=== PATIENT | female | born 1990 | race Caucasian/White ===

== ENCOUNTER 2024-05-13 15:30 | Emergency (ER) | payer OTHER, SELFPAY ==
[2024-05-13 15:35] VITALS: BP 110/79
--- NOTE | 2024-05-13 16:53 | ED.GENMED ---
History of Present Illness
General
Chief Complaint: DVT/Possible Blood Clot
Source: patient
Exam Limitations: none
Time Seen by Provider: 05/13/24 16:04
Nursing documentation reviewed up to this point in time: agreed with
History of Present Illness
History of Present Illness:
Patient to ED with complaint of left calf pain x 4 days. She is concerned for DVT. No history of prior DVT. No history of trauma. No prior history of same. Brought self to ED for eval.
Past History
Past History
ED Past Medical History: None
Phy Exam
General Physical Exam
General Presentation: well appearing and no apparent distress
General age: appears stated age
General Skin: warm and dry
General Habitus: normal
General Mental: alert
Musculoskeletal Exam
Musculoskeletal Exam: full ROM and neuro vasc intact
Skin Exam
Skin Exam: normal color, warm/dry and no rash
Psychiatric Exam
Psychiatric Exam: normal mood/affect
Course
Orders/Labs/Results
Orders:
Orders
05/13/24 15:39
US Periph Venous LOWER Ext LT Urgent
Comment:
Reason For Exam: left calf pain for last four days
Vital Signs
Initial and Last Documented VS:
Initial Vital Signs
Temp Pulse Resp BP Pulse Ox
98.0 F 60 20 110/79 98
05/13/24 15:35 05/13/24 15:35 05/13/24 15:35 05/13/24 15:35 05/13/24 15:35
Last Documented Vital Signs
Temp Pulse Resp BP Pulse Ox
98.0 F 60 20 110/79 97
05/13/24 15:35 05/13/24 15:35 05/13/24 15:35 05/13/24 15:35 05/13/24 16:37
*Radiology
Radiology exam reviewed: radiology read reviewed
*Pulse Oximetry
Patient hypoxic: no
*Critical Care Note
Total Time (30-74mins, 75-104mins- exclusive of procedures): Not Applicable
ED Attending Note
-
Portions of this chart may have been created with voice recognition software.� Occasional wrong word or��sound alike� substitutions may have occurred due to the inherent limitations of voice recognition software.
Discharge Plan
Departure
Patient Disposition: Home (Routine Discharge)
Date of Disposition: 05/13/24
Time of Disposition: 16:51
Patient with high blood pressure during this ER visit?: No
Condition: Good
Covid-19: Not Applicable
Discharge Problem:
Calf pain
Instructions: Ibuprofen, Musculoskeletal Pain
Activity Restrictions/Additional Instructions:
Follow up with your family doctor.
Interventions
Interventions:
*ED COVID-19 Vaccine History Last Done: 05/13/24 15:35
ED- Cardiac Assessment Last Done: 05/13/24 16:37
ED- Pulmonary Assessment Last Done: 05/13/24 16:37
ED-Skin Assessment Last Done: 05/13/24 16:08
Discharge Date and Time
Print Language: URUGUAYAN
Musculoskeletal Injury Exam
Musculoskeletal Injury Exam
Left Calf:
Pain with Movement?: Moderate
Tender to palpation?: Mild
Soft tissue swelling?: None
External deformity and angulation?: None
Joint effusion?: None
Contusion?: None
Hematoma-local bleeding into tissue?: None
Crepitus with movement?: No
Malalignment/deformity?: No
Range of motion: Full
Distal skin color and temperature: normal-warm & good color
Capillary Refill: normal
Normal distal neurovascular exam?: Yes
Peripheral Pulses: posterior tibial (left): 3+, posterior tibial (right): 3+, dorsalis pedis (left): 3+ and dorsalis pedis (right): 3+
[2024-05-13 17:01] VITALS: BP 121/73
== END 2024-05-13 17:02 | disposition home or self-care (01) ==
LOC: EMR 15:30
PROVIDERS: EMERGENCY PHYSICIAN Emergency Medicine
DX: M79.662 Pain in left lower leg (principal)
CPT/HCPCS: 99284; 93971

== ENCOUNTER 2025-05-08 19:42 | Emergency (ER) | payer OTHER, SELFPAY ==
[2025-05-08 19:51] VITALS: BP 122/72
[2025-05-08 20:38] LABS: Hematocrit 40.0 % (37.0-47.0); Hemoglobin 13.3 g/dL (12.0-16.0); Mean Corp Hgb Conc. 33.3 g/dL (33.0-37.0); Mean Corpuscular Volume 95.9 fL (81.0-99.0); Nucleated Red Blood Cells % 0 %; Platelet Count 223 10^3/uL (130-400); Red Cell Dist. Width 11.9 % (11.5-14.5)
[2025-05-08 20:46] LABS: HCG, Serum Qualitative Screen Negative
[2025-05-08 20:47] LABS: Urine Character Clear (Clear)
[2025-05-08 20:50] LABS: ALT (SGPT) 12 U/L (0-35); AST (SGOT) 21 U/L (14-36); Albumin 4.3 g/dl (3.5-5.0); Alkaline Phosphatase 62 U/L (38-126); Blood Urea Nitrogen 15 mg/dl (7-17); Calcium 9.5 mg/dl (8.4-10.2); Carbon Dioxide 27 mmol/L (22-30); Chloride 106 mmol/L (98-107); Glucose 91 mg/dl (70-99); Lipase 105 U/L (23-300); Potassium 4.1 mmol/L (3.5-5.1); Sodium 138 mmol/L (135-145); Total Protein 7.0 g/dl (6.3-8.2); eGFR > 60.00
--- NOTE | 2025-05-08 21:12 | ED.GENMED ---
History of Present Illness
General
Chief Complaint: Abdominal Pain
Source: patient
Exam Limitations: none
Time Seen by Provider: 05/08/25 20:56
Nursing documentation reviewed up to this point in time: agreed with
History of Present Illness
History of Present Illness:
34-year-old female with right lower abdominal pain and pelvic pain for a year, she thinks she had some prior imaging though she is not sure used to live in [place] now lives in [facility] no fever chills no nausea no vomiting she feels her symptoms
could have burst states her brother had a similar episode with his appendix, no change with her menstrual period, she has a 2-year-old, been busy with 2-year-old unable to see the doctor,
Past History
Past History
ED Past Medical History: None
ED Past Surgical History: None
Social History
Tobacco: Non-smoker
Alcohol: None
Drug: None
Personal:
Living: with family
Employment: Employed
Review of Systems
Review of Systems
All Other Systems: Not applicable
Constitutional: Denies fever or fatigue
EENT: Reports no symptoms
Respiratory: Reports no symptoms
Cardiac: Reports no symptoms
ABD/GI: Reports abdominal pain; Denies nausea or diarrhea
: Reports no symptoms; Denies incontinence or bleeding
Neurological: Reports no symptoms
Endocrine: Reports no symptoms
Phy Exam
Physical Exam
Physical Exam:
Physical Exam
General: no apparent distress, not acutely ill
Neck: No jaw
Heart: s1/s2 regular rate and rhythm, no murmur. equal radial pulses.
Lungs: no acute respiratory distress. clear bilaterally
Abdomen: Tender in the right lower abdomen mild without guarding or rebound
Neuro: alert and oriented. no focal neurological deficits
Skin: no rash
Psychiatric: well kept. interactive and cooperative
Extremities: no edema.
Course
Orders/Labs/Results
Orders:
Orders
05/08/25 19:54
Test Result ONCE
05/08/25 20:05
Complete Blood Count/With Diff Urgent
Comprehensive Metabolic Panel Urgent
HCG, Serum Qualitative Screen Urgent
Lipase Urgent
Urinalysis Reflex To Culture Urgent
Date Specimen was Collected: 05/08/25
Time Specimen was Collected: 19:53
Urine Microscopic Reflex Cult Urgent
Urine Culture Urgent
[facility] Source: U
Specimen Description:
Date Specimen was Collected: 05/08/25
Time Specimen was Collected: 19:53
05/08/25 21:10
CT Abd/Pel (IV only)-DH only Urgent
Comment:
Reason For Exam: rlq pain
Ketorolac [Toradol] 30 mg IV NOW STA
US Pelvis Only (non-obstetric) Urgent
Comment:
Reason For Exam: r adbexa oabu
05/08/25 23:14
Magnesium Citrate [Citroma] 300 ml PO ONCE ONE
Abnormal Lab Results
05/08/25
20:05
RBC 4.17 L 10^6/uL
(4.20-5.40)
MCH 31.9 H pg
(27.0-31.0)
MPV 11.3 H fL
(7.4-10.4)
Leukocyte Esterase Rfl 2+ A
(Negative)
Urine WBC (Reflex) 16-20 A /HPF
(0-5)
Urine Bacteria (Reflex) Few A
(Negative)
05/08/25 20:05
05/08/25 20:05
Vital Signs
Initial and Last Documented VS:
Initial Vital Signs
Temp Pulse Resp BP Pulse Ox
98.2 F 50 16 122/72 98
05/08/25 19:51 05/08/25 19:51 05/08/25 19:51 05/08/25 19:51 05/08/25 19:51
Last Documented Vital Signs
Temp Pulse Resp BP Pulse Ox
98.2 F 48 17 111/66 100
05/08/25 19:51 05/08/25 23:16 05/08/25 23:16 05/08/25 23:01 05/08/25 23:02
MDM/Problems Addressed
Differential Diagnosis Includes:
Ovarian cyst inflammatory bowel disease TOA doubt appendicitis other
MDM/Problems Addressed:
Right lower abdominal
*Radiology
Radiology exam reviewed: radiology read reviewed
*Pulse Oximetry
SaO2: 98
Oxygen Mode of Delivery: Room air
Patient hypoxic: no
*Critical Care Note
Total Time (30-74mins, 75-104mins- exclusive of procedures): Not Applicable
Update Note
Update Note:
[address] noted ultrasound pending labs noted
Patient appears comfortable, ultrasound CAT scan reports reviewed patient states he is not constipated, reviewed possibility of muscle strain abdominal wall laxity after , even sports hernia she is most concerned that she has a family
history of colon cancer father of colon cancer will refer her to see GI nonurgently, started on a bowel regimen and NSAIDs
ED Attending Note
-
Portions of this chart may have been created with voice recognition software.� Occasional wrong word or��sound alike� substitutions may have occurred due to the inherent limitations of voice recognition software.
Discharge Plan
Departure
Patient Disposition: Home (Routine Discharge)
Date of Disposition: 05/08/25
Time of Disposition: 23:17
Patient with high blood pressure during this ER visit?: No
Condition: Good
Discharge Problem:
Abdominal pain
Instructions: Constipation, Adult (DC), Abdominal Pain
Prescriptions:
New
ibuprofen 600 mg tablet
600 mg PO Q8H PRN (Reason: Pain) Qty: 20 0RF
polyethylene glycol 3350 [Miralax] 17 gram/dose powder
4 g PO DAILY PRN (Reason: Constipation) Qty: 238 0RF
Referrals:
NONE,* [Family Provider, Internal Medicine]
Sangita Busby, [Active, Gastroenterology] - Next open appointment
Interventions
Interventions:
*Risk Screen - Suicide Last Done: 05/08/25 19:51
*General Assessment Last Done: 05/08/25 19:51
*Neglect/Abuse Screening Last Done: 05/08/25 19:51
*ED- Fall Risk Assessment Last Done: 05/08/25 21:38
*ED COVID-19 Vaccine History Last Done: 05/08/25 21:38
ND-Fgkwhg-Iflsmhxkrt Assessment Last Done: 05/08/25 21:38
Discharge Date and Time
Print Language: WELSH
[2025-05-08 21:19] LABS: Urine Red Blood Cell 0-2 /HPF (0-2); Urine Squamous Cell >30 /LPF (Few); Urine White Cell 16-20 /HPF (0-5)
[2025-05-08 21:45] VITALS: BP 107/66
[2025-05-08 22:30] VITALS: BP 104/69
[2025-05-08 23:01] VITALS: BP 111/66
[2025-05-08] MEDS: CITROMA 300 ML PO (23:24)
== END 2025-05-08 23:32 | disposition home or self-care (01) ==
LOC: EMR 19:42
PROVIDERS: EMERGENCY PHYSICIAN Emergency Medicine
DX: R10.31 Right lower quadrant pain (principal)
CPT/HCPCS: 99284; 74177; 76856; 80053; 81003; 81015; 83690; 84703; 85025; 87086; Q9967

== ENCOUNTER 2025-10-03 15:42 | Emergency (ER) | payer OTHER, SELFPAY ==
[2025-10-03 15:56] VITALS: BP 120/70
--- NOTE | 2025-10-03 17:05 | ED.MUSCINJ ---
HPI-Injury
General
Chief Complaint: Musculo-Skeletal Complaint
Source: patient
Exam Limitations: none
Time Seen by Provider: 10/03/25 16:23
Nursing documentation reviewed up to this point in time: agreed with
History of Present Illness-Injury
Initial Injury comments:
35-year-old female with history of spinal surgery with rods and hardware presents for pain of the left calf. This pain started four days ago and getting worse. . The pain is described as severe, even with light touch, and is accompanied by tingling
sensations running down the leg. The patient expressed concern about the possibility of a blood clot due to the severity and nature of the symptoms. She reports no recent travel, no risk for clots. No recollection of overuse or injury.
Past History
Past History
ED Past Medical History: None
ED Past Surgical History: None
Social History
Tobacco: Non-smoker
Alcohol: None
Drug: None
Personal:
Living: with family
Employment: Employed
Review of Systems
Review of Systems
Allergies reviewed?: Yes
All Other Systems: ROS reviewed and negative except as documented in HPI and ROS
Musculoskeletal: Reports back pain ( spinal surgery involving fusion with hardware, which she associates with occasional nerve-related issues, pain in back and legs) and other (pain left calf)
Skin: Reports no symptoms
Neurological: Denies weakness or numbness
Phy Exam
Physical Exam
Physical Exam:
GENERAL: No acute distress. A&Ox3.
CONSTITUTIONAL: Afebrile.
RESPIRATORY: Regular respirations, nonlabored, lungs clear.
CARDIOVASCULAR: Regular rate and rhythm, no murmurs, no rubs. Pedal pulse 2/4
MUSCULOSKELETAL: Left calf is tender to palpate, no swelling, redness, warmth. Distal n/v intact. Full ROM Moves with ease. Well perfused.
SKIN: Warm, dry, pink
PSYCH: Normal mood and affect. Well kept, interactive and appropriate
NEUROLOGIC: Awake, alert and oriented. No focal neurological deficits
Injury Course
Orders/Labs/Results
Orders:
Orders
10/03/25 16:23
US Periph Venous LOWER Ext LT Urgent
Comment:
Reason For Exam: calf pain
MDM/Problems Addressed
Differential Diagnosis Includes:
Musculoskeletal pain, strain, DVT
MDM/Problems Addressed:
35-year-old female with history of spinal surgery with rods and hardware presents for pain of the left calf. This pain started four days ago and getting worse. . The pain is described as severe, even with light touch, and is accompanied by tingling
sensations running down the leg. The patient expressed concern about the possibility of a blood clot due to the severity and nature of the symptoms. She reports no recent travel, no risk for clots. No recollection of overuse or injury.
7:15 PM:
Ultrasound negative for DVT. Patient reassured
*Pulse Oximetry
SaO2: 97
Oxygen Mode of Delivery: Room air
Patient hypoxic: not evaluated
*Critical Care Note
Total Time (30-74mins, 75-104mins- exclusive of procedures): Not Applicable
ED Attending Note
-
Portions of this chart may have been created with voice recognition software.� Occasional wrong word or��sound alike� substitutions may have occurred due to the inherent limitations of voice recognition software.
Discharge Plan
Departure
Patient Disposition: Home (Routine Discharge)
Date of Disposition: 10/03/25
Time of Disposition: 19:14
Patient with high blood pressure during this ER visit?: No
Condition: Good
Discharge Problem:
Pain of left calf
Instructions: Musculoskeletal Pain
Prescriptions:
No Action
ibuprofen 600 mg tablet
600 mg PO Q8H PRN (Reason: Pain) Qty: 20 0RF
polyethylene glycol 3350 [Miralax] 17 gram/dose powder
4 g PO DAILY PRN (Reason: Constipation) Qty: 238 0RF
Referrals:
NONE,* [Family Provider, Internal Medicine]
Jose Luis Mitchell MD [Active, Orthopedics] - As needed
Activity Restrictions/Additional Instructions:
As we discussed, your ultrasound shows no clot.
This may be a muscle strain, ibuprofen 600 mg, with food every 6 hours as needed for pain.
Follow-up with your family doctor or the orthopedic doctor if the leg is not a lot better in 1 week or not 100% better in 2 weeks.
Avoid any activity that strained the calf muscle.
Interventions
Interventions:
*Risk Screen - Suicide Last Done: 10/03/25 15:56
*General Assessment Last Done: 10/03/25 17:43
*Neglect/Abuse Screening Last Done: 10/03/25 17:43
[facility] Risk Assessment Tool Last Done: 10/03/25 17:43
ED-Musculoskeletal Assessment Last Done: 10/03/25 17:19
Discharge Date and Time
Print Language: MEXICAN
== END 2025-10-03 19:25 | disposition home or self-care (01) ==
LOC: EMR 15:42
PROVIDERS: EMERGENCY PHYSICIAN Emergency Medicine
DX: M79.662 Pain in left lower leg (principal); Z98.890 Other specified postprocedural states
CPT/HCPCS: 99284; 93971